=== PATIENT | male | born 1950 | race Caucasian/White ===

== ENCOUNTER 2019-09-10 05:49 | Inpatient (IN) | payer BC ==
[2019-09-03 14:16] LABS: BASOPHILS % (AUTO) 0.6 % (0-1); EOSINOPHILS # (AUTO) 0.1 X10'3 (0-0.9); EOSINOPHILS % (AUTO) 2.3 % (0-6); LYMPHOCYTES # (AUTO) 1.6 X10'3 (1.1-4.8); LYMPHOCYTES % (AUTO) 27.5 % (21-51); MEAN CORPUSCULAR HEMOGLOBIN 30.9 PG (27.0-31.0); MEAN CORPUSCULAR HGB CONC 34.6 g/dL (33.0-36.5); MEAN CORPUSCULAR VOLUME 89.5 FL (78-98); MEAN PLATELET VOLUME 8.2 FL (7.4-10.4); MONOCYTES # (AUTO) 0.4 X10'3 (0-0.9); MONOCYTES % (AUTO) 6.3 % (2-12); NEUTROPHILS # (AUTO) 3.8 X10'3 (1.8-7.7); NEUTROPHILS % (AUTO) 63.3 % (42-75); PRE OP HEMATOCRIT 45.4 % (42.0-52.0); PRE OP HEMOGLOBIN 15.7 g/dL (14.0-17.9); PRE OP PLATELET COUNT 272 X10'3 (140-440); RED BLOOD COUNT 5.07 X10'6 (4.70-6.10); RED CELL DISTRIBUTION WIDTH 12.9 % (11.5-14.5)
[2019-09-03 14:32] LABS: PRE OP INR 0.9 INR; PRE OP PROTIME 9.7 SECONDS (9.0-12.0)
[2019-09-03 14:55] LABS: ALKALINE PHOSPHATASE 88 IU/L (46-116); BLOOD UREA NITROGEN 31 MG/DL (7-18); BUN/CREATININE RATIO 28.4 (5.4-32.0); CALCIUM 8.4 MG/DL (8.5-10.1); CHLORIDE 104 MMOL/L (99-107); CREATININE 1.09 MG/DL (0.60-1.10); PRE OP ANION GAP 7 (8-16); PRE OP BILIRUB, TOTAL 0.5 MG/DL (0.0-1.0); PRE OP SODIUM 140 MMOL/L (135-145); TOTAL CARBON DIOXIDE 29.3 MMOL/L (24-32); eGFR 67 ML/MIN
[2019-09-03 14:58] LABS: ALBUMIN/GLOBULIN RATIO 1.2 (1.1-1.5); PRE OP ALT 46 U/L (30-65); PRE OP AST 17 U/L (10-37); PRE OP GLUCOSE 110 MG/DL (70-104); PRE OP POTASSIUM 4.5 MMOL/L (3.4-5.1); TOTAL PROTEIN 7.4 G/DL (6.4-8.2)
[~2019-09-10] VITALS: Ht 177.8 cm; Wt 89.4 kg
[2019-09-10] VITALS (19 sets, daily range): BP systolic 87–131; BP diastolic 47–83
[~2019-09-10 05:49] MED LIST: DICL-194 PO; acetaminophen 325mg tablet PO ONE; cefazolin/dext.iso 2gm/100ml 100 ML IV ONE; celeCOXIB 100mg capsule PO ONE; famotidine 10mg tablet PO ONE; gabapentin 300mg capsule PO ONE; metoclopramide 5 mg/ml inj IV ONE; oxyCODONE SR 10mg (sust. release) tab -2 tabs (20mg) PO ONE; ringers solution, lacted 1,000 ML IV SCH; tranexamic acid inj. 1,000 MG in normal saline 100 ML IV ONE; vancomycin inj 1,500 MG in normal saline 300ml IV soln IV ONE
[2019-09-10] MEDS ORDERED: ondansetron/PF 4mg/2ml inj IV PRN ×2 (06:35→09:00)
[2019-09-10] MEDS ORDERED: bisacodyl 10mg suppository rectal RC PRN (06:35)
[2019-09-10] MEDS ORDERED: ROPIVAcaine 0.5% (5mg/ml) 30ml vial IJ ONE (07:49)
[2019-09-10] MEDS ORDERED: cloNIDine hcl/PF 100mcg/ml inj IJ ONE (07:52)
[2019-09-10] MEDS ORDERED: ketorolac trometh. 30mg/ml inj. IM ONE (07:53)
[2019-09-10] MEDS ORDERED: epiNEPHrine 1 mg/ml inj SQ ONE (07:55)
[2019-09-10] MEDS ORDERED: MIDAZolam 1mg/ml 10ml vial ONE (08:10)
[2019-09-10] MEDS ORDERED: fentaNYL/PF 50MCG/1 ML 2ML syringe ONE (08:10)
[2019-09-10] MEDS ORDERED: ketorolac trometh. 30mg/ml inj. ONE (08:16)
[2019-09-10] MEDS ORDERED: vancomycin 1,000mg inj ONE (08:16)
[2019-09-10] MEDS ORDERED: cloNIDine hcl/PF 100mcg/ml inj ONE (08:16)
[2019-09-10] MEDS ORDERED: ROPIVAcaine 0.5% (5mg/ml) 30ml vial ONE (08:17)
[2019-09-10] MEDS ORDERED: epiNEPHrine 1 mg/ml inj ONE (08:21)
[2019-09-10] MEDS ORDERED: morphine 4 MG/ML inj SYRINge IV PRN ×2 (09:00)
[2019-09-10] MEDS ORDERED: ringers solution, lacted 1,000 ML IV SCH (09:00)
[2019-09-10] MEDS ORDERED: proCHLORperazine 10 MG/2 ml inj IV PRN (09:00)
[2019-09-10] MEDS ORDERED: meperidine/PF 25mg/ml syringe IV PRN ×3 (09:00)
[2019-09-10] MEDS ORDERED: ePHEDrine 50MG/ML INJ. ONE (09:29)
--- NOTE | 2019-09-10 09:45 | NUR ---
ADMITTED TO PACU FROM OR ACCOMPANIED BY ANESTHESIA. INTIAL PHYSICAL ASSESSMENT DONE AND RECORDED. REPORT RECEIVED FROM ANESTHESIA.
--- NOTE | 2019-09-10 10:45 | NUR ---
PACU DISCHARGE CRITERIA MET, REPORT GIVEN TO FLOOR. DENIES PAIN OR DISCOMFORT, TRANSFERRED TO ROOM IN STABLE GOOD CONDITION.
--- NOTE | 2019-09-10 11:05 | NUR ---
Received report from [facility] nurse
[2019-09-10] MEDS ORDERED: diphenhydrAMINE 25mg capsule PO PRN ×2 (11:30)
[2019-09-10] MEDS ORDERED: magnesium hydroxide 30ml (MOM) UD suspension PO PRN (11:30)
[2019-09-10] MEDS: potassium cl 20mEq in 1/2 NS 1,000 ML IV SCH (11:30)
[2019-09-10] MEDS ORDERED: HYDROcodone/acetaminophen 10/325mg tab PO PRN (11:30)
[2019-09-10] MEDS ORDERED: acetaminophen 325mg tablet PO PRN (11:30)
[2019-09-10] MEDS ORDERED: HYDROmorphone 1 mg/ml syringe IV PRN (11:30)
[2019-09-10] MEDS ORDERED: HYDROmorphone inj. 0.5 MG/0.5 ML DISP.SYRIN IV PRN (11:30)
[2019-09-10] MEDS: gabapentin 300mg capsule PO SCH ×2 (13:54→20:28)
[2019-09-10] MEDS: HYDROcodone/acetaminophen 10/325mg tab PO PRN (13:55)
[2019-09-10] MEDS ORDERED: tranexamic acid inj. 890 MG in normal saline 100ml IV soln 100 ML IV ONE (14:00)
[2019-09-10] MEDS: cefazolin/dext.iso 2gm/100ml 100 ML IV SCH (17:54)
--- NOTE | 2019-09-10 18:15 | NUR ---
report given to Maryann GAVI
[2019-09-10] MEDS: ascorbic acid 500mg tablet PO SCH (20:26)
[2019-09-10] MEDS ORDERED: sennosides 8.6mg tablet PO SCH (21:00)
[2019-09-11] MEDS: cefazolin/dext.iso 2gm/100ml 100 ML IV SCH
[2019-09-11 02:00] VITALS: BP 91/49
[2019-09-11] MEDS: potassium cl 20mEq in 1/2 NS 1,000 ML IV SCH ×2 (03:30)
[2019-09-11] MEDS: HYDROcodone/acetaminophen 10/325mg tab PO PRN ×2 (05:00→10:36)
[2019-09-11 06:21] LABS: BASOPHILS % (AUTO) 0.4 % (0-1); EOSINOPHILS # (AUTO) 0.2 X10'3 (0-0.9); EOSINOPHILS % (AUTO) 2.9 % (0-6); HEMATOCRIT 32.3 % (42.0-52.0); HEMOGLOBIN 11.5 g/dl (14.0-17.9); LYMPHOCYTES # (AUTO) 1.7 X10'3 (1.1-4.8); LYMPHOCYTES % (AUTO) 27.3 % (21-51); MEAN CORPUSCULAR HEMOGLOBIN 31.3 PG (27.0-31.0); MEAN CORPUSCULAR HGB CONC 35.7 g/dL (33.0-36.5); MEAN CORPUSCULAR VOLUME 87.6 FL (78-98); MONOCYTES # (AUTO) 0.7 X10'3 (0-0.9); MONOCYTES % (AUTO) 11.1 % (2-12); NEUTROPHILS # (AUTO) 3.7 X10'3 (1.8-7.7); NEUTROPHILS % (AUTO) 58.3 % (42-75); PLATELET COUNT 205 X10'3 (140-440); RED BLOOD COUNT 3.68 X10'6 (4.70-6.10); RED CELL DISTRIBUTION WIDTH 12.6 % (11.5-14.5); WHITE BLOOD COUNT 6.3 X10'3 (4.5-11.0)
[2019-09-11 06:46] VITALS: BP 105/53
[2019-09-11 06:49] LABS: ANION GAP 6 (8-16); CHLORIDE 104 MMOL/L (99-107); POTASSIUM 3.7 MMOL/L (3.5-5.1); SODIUM 138 MMOL/L (135-145); TOTAL CARBON DIOXIDE 27.6 MMOL/L (24-32)
[2019-09-11] MEDS ORDERED: multivitamins, therapeutics tablet PO SCH (08:00)
[2019-09-11] MEDS: ascorbic acid 500mg tablet PO SCH (08:05)
[2019-09-11] MEDS: gabapentin 300mg capsule PO SCH (08:05)
[2019-09-11] MEDS ORDERED: aspirin 325mg tablet PO SCH (08:30)
[2019-09-11] MEDS ORDERED: ASPI-1 PO (09:03)
[2019-09-11 10:15] VITALS: BP 118/56
== END 2019-09-11 10:50 | disposition home or self-care (01) | DRG 470 ==
LOC: PAS IN 05:49 → EDSTATUS 08:15 → ORTHO 4S 10:55
PROVIDERS: ADMIT Orthopaedic Surgery; ATTEND Orthopaedic Surgery
PROC: 0SRB06Z Replacement of Left Hip Joint with Oxidized Zirconium on Polyethylene Synthetic Substitute, Open Approach (ICD-10-PCS; principal; 2019-09-10 08:14)
DX: M16.12 Unilateral primary osteoarthritis, left hip (principal); D62 Acute posthemorrhagic anemia; Z79.82 Long term (current) use of aspirin; Z79.899 Other long term (current) drug therapy
CPT/HCPCS: Z7506; Z7508; 36415; 71046; 72170; 80051; 80053; 82948; 85025; 85610; 85730; 86885; 86900; 86901; 87081; 93005; 97110; 97116; 97161; 97530; A4615; A7000; C1776; G0378; J0171; J0735; J1885; J2250; J2405; J2765; J2795; J3010; J3370; J3480; J7120